=== PATIENT | male | born 1955 | race Caucasian/White ===

== ENCOUNTER 2021-08-30 07:30 | Inpatient (IN) | payer BC, OTHER ==
[~2021-08-30] VITALS: Ht 185.4 cm; Wt 108.0 kg
[2021-08-30] VITALS (8 sets, daily range): BP systolic 110–131; BP diastolic 60–81
[~2021-08-30 07:30] MED LIST: CENT1TAB PO; FLOM0.4C39 PO; LIDOCAINE 1% MDV 20ML VIAL SQ PRN; LISI20TA33 PO; LR 1,000 ML IV ONE; VITA-243 PO
[2021-08-30] MEDS ORDERED: MIDAZOLAM INJ 2MG/2ML VIAL (J2250 PER 1MG) As Ordered ONE (08:00)
[2021-08-30] MEDS ORDERED: propofoL 200 MG/20 ML VIAL As Ordered ONE (08:01)
[2021-08-30] MEDS ORDERED: LIDOCAINE 2% 100MG/5ML SDV (FOR ANES.) As Ordered ONE (08:01)
[2021-08-30] MEDS ORDERED: SUGAMMADEX SODIUM 500 MG/5 ML VIAL (BRIDION) As Ordered ONE (08:01)
[2021-08-30] MEDS ORDERED: dexameTHASONE 4 MG/ML 1ML VIAL (J1100 PER 1MG) As Ordered ONE (08:01)
[2021-08-30] MEDS ORDERED: ePHEDrine SULFATE 25 MG/5 ML(5MG/ML) SYRINGE As Ordered ONE (08:01)
[2021-08-30] MEDS ORDERED: ACETAMINOPHEN 1000MG 100ML IV BTL (OFIRMEV) (J0131 PER 10MG) As Ordered ONE (08:01)
[2021-08-30] MEDS ORDERED: fentaNYL 250 MCG/5 ML INJECTION As Ordered ONE (08:01)
[2021-08-30] MEDS ORDERED: PHENYLephrine 500MCG 5ML (100MCG/ML) SYRINGE As Ordered ONE (08:01)
[2021-08-30] MEDS ORDERED: ROCURONIUM BROMIDE 50 MG/5 ML VIAL As Ordered ONE ×2 (08:01→10:30)
[2021-08-30] MEDS ORDERED: ONDANSETRON 4MG/2ML VIAL As Ordered ONE (08:01)
[2021-08-30] MEDS ORDERED: LIDOCAINE 1% SDV 30ML VIAL As Ordered ONE (09:33)
[2021-08-30] MEDS ORDERED: BUPIVACAINE HCL 0.25% 30ML VIAL As Ordered ONE (09:33)
[2021-08-30] MEDS ORDERED: ACETAMINOPHEN TAB 650MG DOSE (2X325MG) PO PRN (09:40)
[2021-08-30] MEDS ORDERED: PERCOCET 5MG/325MG TAB PO PRN (09:40)
[2021-08-30] MEDS ORDERED: ONDANSETRON 4MG/2ML VIAL IV PRN ×2 (09:40→15:05)
[2021-08-30] MEDS ORDERED: NS 1,000 ML IV SCH (09:40)
[2021-08-30] MEDS ORDERED: ceFAZolin SOD 2 GM in IV 1 EA IV ONE (09:45)
[2021-08-30] MEDS ORDERED: ceFAZolin 2 GM/D5W 50 ML IV BAG (J0690 PER 500MG) As Ordered ONE (09:45)
[2021-08-30] MEDS ORDERED: HEPARIN SOD (PORCINE) 5000UNITS/ML 1ML VIAL/SYRINGE As Ordered ONE (09:45)
[2021-08-30] MEDS ORDERED: HEPARIN SOD (PORCINE) 5000UNITS/ML 1ML VIAL/SYRINGE SQ ONE (09:50)
[2021-08-30] MEDS ORDERED: fentaNYL 100 MCG/2 ML INJECTION IV PRN (15:05)
[2021-08-30] MEDS ORDERED: oxyCODONE 5MG TAB PO PRN (15:05)
[2021-08-30] MEDS ORDERED: MORPHINE 4 MG/ML 1ML VIAL/SYRINGE (J2270) IV PRN (15:05)
[2021-08-30] MEDS ORDERED: LR 1,000 ML IV SCH (15:05)
[2021-08-30 15:26] LABS: HEMATOCRIT 47.4 % (42.0-52.0); HEMOGLOBIN 15.4 g/dl (13.5-17.5); MEAN CORPUSCULAR HEMOGLOBIN 29.2 pg (27.0-33.0); MEAN CORPUSCULAR HGB CONC 32.5 g/dl (32.0-36.5); MEAN CORPUSCULAR VOLUME 89.9 fl (80.0-96.0); PLATELET COUNT, AUTOMATED 206 10^3/uL (150-450); RED BLOOD COUNT 5.27 10^6/uL (4.30-6.10); WHITE BLOOD COUNT 13.9 10^3/uL (4.0-10.0)
[2021-08-30 15:47] LABS: BLOOD UREA NITROGEN 12 MG/DL (7-18); CALCIUM LEVEL 8.5 MG/DL (8.8-10.2); CARBON DIOXIDE LEVEL 31 MEQ/L (21-32); CHLORIDE LEVEL 109 MEQ/L (98-107); GLOMERULAR FILTRATION RATE > 60.0 (>49); GLUCOSE, FASTING 141 MG/DL (70-100); POTASSIUM SERUM 4.2 MEQ/L (3.5-5.1); SODIUM LEVEL 142 MEQ/L (136-145)
[2021-08-30] MEDS: ceFAZolin SOD 1 GM in D5W MINI-BAG PLUS 50 ML IV SCH (17:28)
[2021-08-30] MEDS: DOCUSATE SODIUM 100MG CAPSULE PO SCH (21:28)
[2021-08-30] MEDS: HEPARIN SOD (PORCINE) 5000UNITS/ML 1ML VIAL/SYRINGE SC SCH (21:29)
[2021-08-31 02:00] VITALS: BP 114/64
[2021-08-31] MEDS: ceFAZolin SOD 1 GM in D5W MINI-BAG PLUS 50 ML IV SCH (02:13)
[2021-08-31] MEDS: HEPARIN SOD (PORCINE) 5000UNITS/ML 1ML VIAL/SYRINGE SC SCH ×2 (05:10→13:24)
[2021-08-31 06:00] VITALS: BP 109/63
[2021-08-31 07:57] LABS: HEMATOCRIT 42.2 % (42.0-52.0); HEMOGLOBIN 13.6 g/dl (13.5-17.5); MEAN CORPUSCULAR HEMOGLOBIN 29.1 pg (27.0-33.0); MEAN CORPUSCULAR HGB CONC 32.2 g/dl (32.0-36.5); MEAN CORPUSCULAR VOLUME 90.2 fl (80.0-96.0); PLATELET COUNT, AUTOMATED 206 10^3/uL (150-450); RED BLOOD COUNT 4.68 10^6/uL (4.30-6.10); WHITE BLOOD COUNT 9.9 10^3/uL (4.0-10.0)
[2021-08-31] MEDS: DOCUSATE SODIUM 100MG CAPSULE PO SCH (08:25)
[2021-08-31 08:26] VITALS: BP 124/65
[2021-08-31] MEDS: PERCOCET 5MG/325MG TAB PO PRN ×2 (08:30→13:24)
[2021-08-31 08:31] LABS: BLOOD UREA NITROGEN 10 MG/DL (7-18); CALCIUM LEVEL 8.6 MG/DL (8.8-10.2); CARBON DIOXIDE LEVEL 30 MEQ/L (21-32); CHLORIDE LEVEL 110 MEQ/L (98-107); CREATININE FOR GFR 0.72 MG/DL (0.70-1.30); GLOMERULAR FILTRATION RATE > 60.0 (>49); GLUCOSE, FASTING 104 MG/DL (70-100); POTASSIUM SERUM 4.1 MEQ/L (3.5-5.1); SODIUM LEVEL 144 MEQ/L (136-145)
[2021-08-31 10:00] VITALS: BP 125/64
[2021-08-31 14:00] VITALS: BP 118/70
[2021-08-31] MEDS ORDERED: CIPR-249 PO ×2 (15:04→15:07)
[2021-08-31] MEDS ORDERED: PERCOCET PO (15:04)
[2021-08-31] MEDS ORDERED: COLA100C5 PO (15:04)
== END 2021-08-31 16:25 | disposition home or self-care (01) | DRG 484 ==
LOC: M OR 08:42 → M MS5PR 16:40
PROVIDERS: ADMIT Urology; ATTEND Urology
PROC: 07BC4ZZ Excision of Pelvis Lymphatic, Percutaneous Endoscopic Approach (ICD-10-PCS; 2021-08-30)
PROC: 8E0W4CZ Robotic Assisted Procedure of Trunk Region, Percutaneous Endoscopic Approach (ICD-10-PCS; 2021-08-30)
PROC: 0VT04ZZ Resection of Prostate, Percutaneous Endoscopic Approach (ICD-10-PCS; principal; 2021-08-30 10:10)
DX: C61 Malignant neoplasm of prostate (principal); I10 Essential (primary) hypertension; Z79.899 Other long term (current) drug therapy